=== PATIENT | female | born 1955 | race Caucasian/White ===

== ENCOUNTER → 2017-02-28 | Outpatient (CLI) | payer OTHER | LOC: FIMAGING 08:30 | PROVIDERS: ATTEND Obstetrics & Gynecology Gynecology | DX: Z12.31 Encounter for screening mammogram for malignant neoplasm of breast (principal); Z80.3 Family history of malignant neoplasm of breast | CPT/HCPCS: G0202 ==

== ENCOUNTER → 2017-03-14 | Outpatient (CLI) | payer OTHER | LOC: FIMAGING 08:53 | PROVIDERS: ATTEND Physician Assistant Medical | DX: R92.8 Other abnormal and inconclusive findings on diagnostic imaging of breast (principal) ==

== ENCOUNTER → 2017-03-27 | Outpatient (CLI) | payer OTHER ==
[~2017-03-27] MED LIST: BUPIVACAINE 0.5% 10 ML SDV ONE; LIDO/EPI 1% **Not for Epidural 20 ML MDV ONE; LIDOCAINE 1% 300 MG/30 ML SDV ONE; THROMBIN (BOVINE) 5,000 UNIT VIAL TP ONE
[2017-03-31 14:19] LABS: ACCESSION # HR17-40265; INTERPRETATION See Comments
== END ==
LOC: FIMAGING 07:25
PROVIDERS: ATTEND Obstetrics & Gynecology Gynecology
PROC: 0HBU3ZX Excision of Left Breast, Percutaneous Approach, Diagnostic (ICD-10-PCS; principal; 2017-03-27)
DX: C50.912 Malignant neoplasm of unspecified site of left female breast (principal)
CPT/HCPCS: G0206

== ENCOUNTER → 2017-04-13 | Outpatient (CLI) | payer OTHER ==
[~2017-04-13] MED LIST changes: -BUPIVACAINE 0.5% 10 ML SDV ONE; +GADOBUTROL 10 ML VIAL IVP ONE; -LIDO/EPI 1% **Not for Epidural 20 ML MDV ONE; -LIDOCAINE 1% 300 MG/30 ML SDV ONE; -THROMBIN (BOVINE) 5,000 UNIT VIAL TP ONE
== END ==
LOC: FIMAGING 11:54
PROVIDERS: ATTEND Surgery
DX: C50.412 Malignant neoplasm of upper-outer quadrant of left female breast (principal); N60.11 Diffuse cystic mastopathy of right breast
CPT/HCPCS: 0159T; 77059; A9585; C8908

== ENCOUNTER → 2017-05-03 | Day surgery (SDC) | payer OTHER | END | disposition home or self-care (01) | LOC: FIMAGING 07:35 | PROVIDERS: ATTEND Radiology Diagnostic Radiology | DX: C50.912 Malignant neoplasm of unspecified site of left female breast (principal); Z88.0 Allergy status to penicillin; Z91.040 Latex allergy status | CPT/HCPCS: 19281; 76098; 78195; A9520 ==

== ENCOUNTER → 2017-07-03 | Outpatient (CLI) | payer OTHER | LOC: FIMAGING 13:16 | PROVIDERS: ATTEND Internal Medicine Hematology & Oncology | DX: M85.80 Other specified disorders of bone density and structure, unspecified site (principal) ==

== ENCOUNTER → 2017-09-06 | Outpatient (CLI) | payer OTHER | LOC: FIMAGING 09:12 | PROVIDERS: ATTEND Internal Medicine Endocrinology, Diabetes & Metabolism | DX: E04.2 Nontoxic multinodular goiter (principal); R73.03 Prediabetes; E78.01 Familial hypercholesterolemia ==

== ENCOUNTER → 2017-10-05 | Outpatient (CLI) | payer OTHER ==
[~2017-10-05] MED LIST changes: -GADOBUTROL 10 ML VIAL IVP ONE; +LIDOCAINE 1% 300 MG/30 ML SDV ONE
== END ==
LOC: FIMAGING 12:14
PROVIDERS: ATTEND Internal Medicine Endocrinology, Diabetes & Metabolism
PROC: 0GBG3ZX Excision of Left Thyroid Gland Lobe, Percutaneous Approach, Diagnostic (ICD-10-PCS; principal; 2017-10-05)
PROC: 0GBH3ZX Excision of Right Thyroid Gland Lobe, Percutaneous Approach, Diagnostic (ICD-10-PCS; principal; 2017-10-05)
DX: C73 Malignant neoplasm of thyroid gland (principal)

== ENCOUNTER 2017-12-28 08:31 | Observation (INO) | payer OTHER ==
[2017-12-28] MEDS ORDERED: LR 1,000 ML IV ONE (08:39)
[2017-12-28] MEDS ORDERED: LIDOCAINE 1% 2 ML INJ ID PRN (08:39)
--- NOTE | 2017-12-28 09:19 | PDANEPAE ---
ANE History of Present Illness thyroidectomy ANE Past Medical History - Cardiovascular History Hx Hypertension: No Hx Arrhythmias: No Hx Chest Pain: No Hx Coronary Artery / Peripheral Vascular Disease: No Hx CHF / Valvular Disease: No Hx Palpitations: No - Pulmonary History Hx COPD: No Hx Asthma/Reactive Airway Disease: No Hx Recent Upper Respiratory Infection: No Hx Oxygen in Use at Home: No Hx Sleep Apnea: No Sleep Apnea Screening Result - Last Documented: Negative - Neurologic History Hx Cerebrovascular Accident: No Hx Seizures: No Hx Dementia: No - Endocrine History Hx Diabetes: No Endocrine History Comment: GRAVES DISEASE - Renal History Hx Renal Disorders: No - Liver History Hx Hepatic Disorders: Yes Hepatic History Comment: CHOLECYSTECTOMY. DISTAL PANCREATECTOMY FOR CHRONIC PANCREATITIS - Neurological & Psychiatric Hx Hx Neurological and Psychiatric Disorders: Yes Neurological / Psychiatric History Comment: ANXIETY & SLEEP. MIGRAINES - Cancer History Hx Cancer: Yes Cancer History Comment: BREAST CANCER. THYROID CANCER - Congenital Disorder History Hx Congenital Disorders: No - GI History Hx Gastrointestinal Disorders: No - Other Health History Other Health History: NEG - Chronic Pain History Chronic Pain: Yes (SHOULDER PAIN) - Surgical History Prior Surgeries: LUMPECTOMY L BREAST 04/2017. SPLEENECTOMY AND DISTAL PANCREATECTOMY. CHOLECYSTECTOMY. ROTATOR CUFF R SHOULDER. BUNIONECTOMY L FOOT. HERNIA REPAIR ABD L ANE Review of Systems Review of systems is: negative Review of Systems: - Exercise capacity METS (RN): 5 METS ANE Patient History - Allergies Allergies/Adverse Reactions: Penicillins Allergy (Intermediate, Verified 10/05/15 10:19) HIGH FEVER, FAMILY HX PCN ALLERGY adhesive Allergy (Mild, Verified 10/05/15 10:19) Other-Enter Comments Latex Allergy (Uncoded 11/27/17 12:07) Rash - Home Medications Home medications: home medication list seen and reviewed Home Medications: Aspirin [Aspirin 81mg (*)] 81 mg PO DAILY 11/22/17 [Last Taken Unknown] Calcium Carb W/Vit D [Calcium Carb W/Vit D 500/200 (*)] 2 tab PO DAILY 11/22/17 [Last Taken 12/15/17] Cholecalciferol Vit D3 [Vitamin D3 (*)] 1,000 units PO DAILY 11/22/17 [Last Taken Unknown] Herbals/Supplements -Info Only 1 ea PO DAILY 11/22/17 [Last Taken 12/15/17] LORazepam [Ativan (*)] 0.25 mg PO DAILY PRN 11/22/17 [Last Taken 12/27/17] Methimazole [Tapazole 5MG (*)] 10 mg PO BID 11/22/17 [Last Taken 12/27/17] Multivitamins [Multivitamin (*)] 1 each PO DAILY 11/22/17 [Last Taken 12/15/17] Rizatriptan Benzoate [Maxalt Grip Wrapper] 10 mg PO DAILY PRN 11/22/17 [Last Taken ] Simvastatin [Zocor] 20 mg PO HS 11/22/17 [Last Taken 12/27/17] Vitamin B Complex [Vitamin B Complex (OTC)] 1 each PO DAILY 11/22/17 [Last Taken Unknown] - NPO status NPO Since - Liquids (Date): 12/27/17 NPO Since - Liquids (Time): 21:30 NPO Since - Solids (Date): 12/27/17 NPO Since - Solids (Time): 21:30 - Anes Hx Anes Hx: post operative nausea - Smoking Hx Smoking Status: Former smoker - Family Anes Hx Family Anes Hx: none Family Hx Anesthesia Complications: NEG ANE Labs/Vital Signs - Vital Signs Blood Pressure: 136/79 Heart Rate: 62 Respiratory Rate: 15 O2 Sat (%): 96 Height: 175.26 cm Weight: 70.307 kg ANE Physical Exam - Airway Neck exam: FROM Mallampati Score: Class 1 - Pulmonary Pulmonary: no respiratory distress - Cardiovascular Cardiovascular: regular rate and rhythym - ASA Status ASA Status: II ANE Anesthesia Plan Anesthesia Plan: general endotracheal anesthesia ([facility] would not allow me to sign this document until after case was complete. Evaluation performed before procedure )
[2017-12-28] MEDS ORDERED: MIDAZOLAM 2 MG/2 ML VIAL IVP ONE (09:20)
[2017-12-28] MEDS ORDERED: DEXAMETHASONE 10 MG/ML VIAL IVP ONE (09:58)
[2017-12-28] MEDS ORDERED: ceFAZolin 2 GM/DEXTROSE 100 ML IV ONE (09:58)
--- NOTE | 2017-12-28 09:58 | PDHPUP ---
History & Physical Update H&P update statement: This history and physical update is based on an assessment of the patient which was completed after admission or registration (within 24 hours), but prior to the surgery/procedure. H&P update: H&P reviewed & patient examined, no change in patient's condition since H&P completed
[2017-12-28] MEDS ORDERED: BACITRACIN ZINC 14.2 GM OINTTUBE TP ONE (10:20)
[2017-12-28] MEDS ORDERED: LIDO/EPI 1% **for epidural** 30 ML SDV ONE (10:20)
[2017-12-28] MEDS ORDERED: DEXAMETHASONE 4 MG/ML VIAL ONE (10:24)
[2017-12-28] MEDS ORDERED: LIDOCAINE 2% 100 MG/5 ML SYR ONE (10:24)
[2017-12-28] MEDS ORDERED: ONDANSETRON 4 MG/2 ML VIAL ONE (10:24)
[2017-12-28] MEDS ORDERED: ROCURONIUM 50 MG/5 ML VIAL ONE (10:24)
[2017-12-28] MEDS ORDERED: fentaNYL 250 MCG/5 ML INJ ONE (10:24)
[2017-12-28] MEDS ORDERED: PROPOFOL 200 MG/20 ML VIAL ONE ×2 (10:25→11:00)
[2017-12-28] MEDS ORDERED: ONDANSETRON 4 MG/2 ML VIAL IVP PRN ×2 (11:31→14:54)
[2017-12-28] MEDS ORDERED: ACETAMINOPHEN 500 MG TAB PO PRN (11:31)
[2017-12-28] MEDS ORDERED: PROMETHAZINE HCL 25 MG/ML INJ IVP PRN (11:31)
[2017-12-28] MEDS ORDERED: HYDROCODONE/APAP 5/325 TAB PO PRN (11:31)
[2017-12-28] MEDS ORDERED: DEXAMETHASONE 4 MG/ML VIAL IVP PRN (11:31)
[2017-12-28] MEDS ORDERED: oxyCODONE IR 5 MG TAB PO PRN (11:31)
[2017-12-28] MEDS ORDERED: MEPERIDINE 25 MG/0.5 ML AMP IVP PRN (11:31)
[2017-12-28] MEDS ORDERED: NALOXONE HCL 0.4 MG/ML INJ IVP PRN (11:31)
--- NOTE | 2017-12-28 11:32 | POSTANESTH ---
Post Anesthetic Evaluation Cardiovascular Status: Normal, Stable, Similar to Pre-Op Cond Respiratory Status: Normal, Stable, Similar to Pre-op Cond. Level of Consciousness/Mental Status: Can Participate in Eval, Mildly Sleepy, Arousable Pain Control: Adequate, Prn Tx Ordered Nausea/Vomiting Control: Adequate, Prn Tx Ordered Complications Possibly Related to Anesthesia: None Noted
[2017-12-28] MEDS ORDERED: fentaNYL 100 MCG/2 ML INJ ONE (13:26)
[2017-12-28] MEDS: fentaNYL 100 MCG/2 ML INJ IVP PRN ×2 (13:27→13:45)
[2017-12-28] MEDS ORDERED: HYDROmorphONE/DILAUDID 1 MG/ML INJ ONE (13:36)
[2017-12-28] MEDS: HYDROmorphONE/DILAUDID 2 MG/ML INJ IVP PRN ×3 (13:37→14:14)
--- NOTE | 2017-12-28 13:38 | GOP ---
[f rep st] OPERATIVE REPORT DATE OF OPERATION: 12/28/2017 SURGEON: Bhaskar Bermudez MD ASSISTANT CASE MANAGER SURGEON: Vj Caba MD PA: FORTINO Sosa ANESTHESIA: General. PREOPERATIVE DIAGNOSIS: Left thyroid tumor suspicious for papillary thyroid carcinoma. POSTOPERATIVE DIAGNOSIS: Left thyroid tumor suspicious for papillary thyroid carcinoma. PROCEDURE PERFORMED: Total thyroidectomy. FINDINGS: Nodular thyroid gland. Both recurrent laryngeal nerves were identified and preserved. I localized the single parathyroid on either side. I did not see the other 2. No palpable or visual adenopathy was noted in the tracheoesophageal grooves. Therefore, I elected not to perform the central compartment neck dissection. SPECIMENS: Thyroid gland. ESTIMATED BLOOD LOSS: Less than 50 mL. INDICATIONS: The patient is a 62-year-old woman with a history of Graves disease. She had a needle biopsy of the left thyroid mass which showed suspicion for papillary cancer. She presents for total thyroidectomy with possible central compartment neck dissection. DESCRIPTION OF PROCEDURE: Patient was taken to the OR, positively identified, placed on monitors and general endotracheal anesthesia was induced. The patient was prepped and draped in normal sterile fashion. Incision was marked along the anterior neck skin crease and infiltrated with 3 cc of 1% lidocaine with 1:200,000 of epinephrine. The skin was then sharply incised. Dissection was then carried down through the platysma. Superior and inferior subplatysmal flaps were then raised and secured with 2-0 silk stick sutures. The strap muscles were divided in the midline and elevated off the thyroid gland. Beginning on the left side the superior vascular pedicle was isolated, clamped, and ligated with 2-0 silk stick tie. The thyroid gland was then rotated medially. Dissection was carried down along the thyroid capsule until I was able to identify the superior parathyroid gland and the recurrent laryngeal nerve. Potts's ligament was divided. Dissection was continued along the thyroid capsule to the inferior vascular pedicle which was isolated and divided and oversewn with 2-0 silk. The thyroid gland was elevated off the trachea. Attention was then turned to the right side of the gland. The same procedure was done isolating the superior inferior vascular pedicles, dividing them and ligating them. Likewise the middle thyroid vein. As the gland was then rotated medially the inferior parathyroid gland was identified. I did not see the superior gland in this case. The recurrent laryngeal nerve was identified and preserved. Potts's ligament divided. The thyroid gland was elevated off the trachea. The pyramidal lobe was dissected off the larynx and then the gland was removed and oriented for the pathologist. Hemostasis was assured. A drain was placed through a separate stab incision. The wound was closed with interrupted 3-0 Vicryl followed by 4-0 Monocryl and 5- 0 Prolene. A pressure dressing was placed and the case was terminated. The patient tolerated procedure well. COMPLICATIONS: None. /[id number]/MODL MTDD
[2017-12-28] MEDS ORDERED: HYDROCODONE/APAP 5/325 TAB ONE ×2 (14:10→14:12)
[2017-12-28] MEDS ORDERED: D5W 1/2 NS W/ 20 KCl/L 1,000 ML IV SCH (15:00)
[2017-12-28] MEDS: OXYCODONE/APAP 5/325 TAB PO PRN ×2 (15:11→19:38)
--- NOTE | 2017-12-28 19:01 | SOAPPROG ---
SOAP Progress Note Assessment/Plan: Assessment: Pt doing well. Likely will be OK for discharge in the morning. Plan: OBS over night and remove NADINE in the morning. Pt has all her meds at home including pain meds and synthroid. Her follow up is arranged for next week. 12/28/17 18:58 Subjective: pain in neck No SOB No sxs of low CA Objective: Vital Signs Temp Pulse Resp BP Pulse Ox 36.7 C 78 16 127/69 H 94 12/28/17 17:52 12/28/17 17:52 12/28/17 17:52 12/28/17 17:52 12/28/17 17:52 12/27/17 12/28/17 12/29/17 05:59 05:59 05:59 Intake Total 1610 Output Total 425 Balance 1185 Neck is flat and voice is clear. ICD10 Worksheet Patient Problems: Problems Problem Status Onset Papillary thyroid carcinoma Acute - ICD10 Problem Qualifiers (1) Papillary thyroid carcinoma
[2017-12-29] MEDS: OXYCODONE/APAP 5/325 TAB PO PRN ×3 (00:19→09:33)
[2017-12-29 07:08] VITALS: BP 111/61
--- NOTE | 2017-12-29 10:14 | PDDCSUM ---
Discharge Summary Discharge Summary: 62 year old female POD #1 s/p total thyroidectomy for papillary thyroid carcinoma by Dr. Bermudez. She is doing well. Denies any numbness, tingling. Pain controlled. Calcium 1.08 at 4:40 am today. NADINE drain output 30mL. Incision clean, dry, intact. Drain removed and dressing replaced. Reviewed post op instructions, precautions. For her hypocalcemia, as she is asymptomatic, we have recommended 2 tums QID for 4 days, then switching to 2 tums TID. She will check ionized calcium next 01/02/18. Discussed possible symptoms, ER precautions. Follow up in clinic for suture removal 01/03/18. Plan reviewed with Dr. Bermudez.
== END 2017-12-29 10:15 | disposition home or self-care (01) ==
LOC: F3E 08:31
PROVIDERS: ADMIT Otolaryngology; ATTEND Otolaryngology
PROC: 07T20ZZ Resection of Left Neck Lymphatic, Open Approach (ICD-10-PCS; principal; 2017-12-28 09:45)
PROC: 0GTK0ZZ Resection of Thyroid Gland, Open Approach (ICD-10-PCS; principal; 2017-12-28 09:45)
DX: C73 Malignant neoplasm of thyroid gland (principal)
CPT/HCPCS: 60252; G0378; J0690; J1100; J1170; J2001; J2250; J2405; J2704; J3010

== ENCOUNTER → 2018-05-14 | Outpatient (CLI) | payer OTHER ==
[~2018-05-14] MED LIST changes: +IOPAMIDOL (ISOVUE-300) 100 ML BTL ONE; -LIDOCAINE 1% 300 MG/30 ML SDV ONE
== END ==
LOC: FIMAGING 14:50
PROVIDERS: ATTEND Family Medicine
DX: K76.9 Liver disease, unspecified (principal)
CPT/HCPCS: Q9967

== ENCOUNTER → 2019-01-14 | Outpatient (CLI) | payer OTHER | LOC: FIMAGING 12:58 ==

== ENCOUNTER → 2019-01-22 | Outpatient (CLI) | payer OTHER | LOC: FIMAGING 12:16 ==